=== PATIENT | male | born 1970 | race Caucasian/White ===

== ENCOUNTER 2024-03-04 12:38 | Emergency (ER) | payer SELFPAY ==
[~2024-03-04] VITALS: Ht 177.8 cm; Wt 77.1 kg
[2024-03-04] VITALS (9 sets, daily range): BP systolic 135–187; BP diastolic 86–117
[~2024-03-04 12:38] MED LIST: CYCLOBENZAPR10 MG PO; DENIES CURRENT MEDS; FLEXERIL OR; LISINOPRIL10 MG PO; METOPROL TAR25 MG PO; PERCOCET 5/325M1 TAB OR
[2024-03-04 13:00] LABS: BASO% 0.2 % (0-3); EOS% 0.3 % (0-8); HEMATOCRIT 47.4 % (39.0-50.0); HEMOGLOBIN 16.6 g/dl (14.0-18.0); IMMATURE GRANULOCYTES 0.5 % (0.0-5.0); LYMPH% 30.2 % (15-41); MEAN CELL VOLUME 85.6 fL CALC (80.0-100.0); MONO% 5.4 % (2-13); NEUT# 3.84 thou/uL (1.82-7.42); NEUT% 63.4 % (42-76); RED BLOOD COUNT 5.54 mill/uL (4.70-6.10); RED CELL DISTRI WIDTH 13.2 % (11.5-15.5)
[2024-03-04 13:00] LABS: URINE BILIRUBIN - DIPSTICK Negative (NEGATIVE); URINE BLOOD DIPSTICK Negative (NEGATIVE); URINE GLUCOSE - DIPSTICK Negative (NEGATIVE); URINE KETONE Negative (NEGATIVE); URINE LEUK ESTERASE Negative (NEGATIVE); URINE NITRITE - DIPSTICK Negative (Negative); URINE PROTEIN - DIPSTICK Negative (NEG-TRACE); URINE SPECIFIC GRAVITY 1.015; URINE UROBILINOGEN - DIPSTICK 0.2 E.U./dL (0.2)
[2024-03-04 13:01] LABS: URINE COLOR Yellow
[2024-03-04 13:10] LABS: ALBUMIN 5.2 g/dL (3.2-5.0); BILIRUBIN, TOTAL 0.8 mg/dL (0.2-1.3); CREATININE 0.9 mg/dL (0.7-1.3); POTASSIUM 4.4 mmol/l (3.5-5.1); TOTAL PROTEIN 8.3 g/dL (6.3-8.2)
[2024-03-04] MEDS ORDERED: ALPRAZolam 0.25 MG PO ONE (13:50)
[2024-03-04] MEDS ORDERED: LABETALOL HCL 20 MG/ 4 ML CARTRG IV ONE ×2 (13:50→15:15)
[2024-03-04] MEDS ORDERED: NORVASC2.5 M1 PO (15:56)
[2024-03-04] MEDS ORDERED: XANAX0.25 MG PO (15:57)
== END 2024-03-04 16:19 | disposition home or self-care (01) | DRG 880 ==
LOC: ED 12:38
PROVIDERS: Nurse Practitioner
DX: F41.9 Anxiety disorder, unspecified (principal); I10 Essential (primary) hypertension; I25.10 Atherosclerotic heart disease of native coronary artery without angina pectoris; I25.2 Old myocardial infarction; F17.200 Nicotine dependence, unspecified, uncomplicated; Z95.5 Presence of coronary angioplasty implant and graft